=== PATIENT | male | born 1995 | race Caucasian/White ===

== ENCOUNTER 2018-06-07 17:46 | Emergency (ER) | payer OTHER ==
[~2018-06-07] VITALS: Ht 190.5 cm; Wt 79.4 kg
[2018-06-07] MEDS ORDERED: AMOXICILLIN500 MG PO (18:31)
== END 2018-06-07 18:39 | disposition home or self-care (01) ==
LOC: FSED 17:46
DX: R05 Cough (principal); J01.10 Acute frontal sinusitis, unspecified; J30.2 Other seasonal allergic rhinitis
CPT/HCPCS: 99283